=== PATIENT | female | born 1985 | race Two or more races ===

== ENCOUNTER 2025-02-19 04:22 | Emergency (ER) | payer MEDICAID, SELFPAY ==
[2025-02-19 04:22] VITALS: BMI 47.2
[2025-02-19 04:23] VITALS: BP 158/109; PULSE 104; RESP 19; TEMP 36.9; O2SAT 97
--- NOTE | 2025-02-19 06:35 | PC.NURSE ---
No answer when called from lobby by Ike ARNOLD
--- NOTE | 2025-02-19 07:00 | PC.NURSE ---
No answer when called from zach
--- NOTE | 2025-02-19 07:19 | PC.NURSE ---
no answer when called from zach
--- NOTE | 2025-02-19 07:19 | PC.NURSE ---
PT CALLED; NO ANSWER.
--- NOTE | 2025-02-19 07:19 | PC.NURSE ---
no answer when called from lobby and patient no where in the ER
--- NOTE | 2025-02-19 07:25 | PC.NURSE ---
PT CALLED 2ND TIME, NO ANSWER.
--- NOTE | 2025-02-19 07:33 | PC.NURSE ---
PT CALLED 3RD TIME; NO ANSWER. ALEXANDER.
== END 2025-02-19 07:20 | disposition left against medical advice (07) ==
LOC: SERX 07:25
PROVIDERS: Emergency Provider Emergency Medicine
DX: Z53.29 Procedure and treatment not carried out because of patient's decision for other reasons (principal)
CPT/HCPCS: 99282

== ENCOUNTER 2025-03-15 10:11 | Emergency (ER) | payer MEDICAID, SELFPAY ==
[2025-03-15 10:12] VITALS: BMI 47.2
[2025-03-15 10:24] VITALS: BP 148/87; PULSE 88; RESP 18; TEMP 36.9; O2SAT 97
--- NOTE | 2025-03-15 10:31 | XR_ITS ---
Examination: PA lateral chest 2 views TECHNIQUE: Upright PA lateral chest 2 views Date and time: March 15, 2025, 1031 hours INDICATIONS: Coughing 3 months. FINDINGS: Normal heart size The lungs are clear. The osseous structures are intact IMPRESSION: No active disease
--- NOTE | 2025-03-15 10:31 | PD.EDABDPN ---
ED Abdominal Pain RME/HPI General Chief Complaint: Abdominal Pain Stated complaint: COUGH FOR MONTHS CAUSEING RIGHT ABD PAIN Time seen by provider: 03/15/25 10:24 Arrival date/time: 03/15/25 10:11 40-year-old female with no known medical history presents to the emergency room with a chief complaint of right lower quadrant abdominal pain and tenderness, nausea, vomiting, cough and congestion. Patient was sent over by her primary care provider to rule out appendicitis. Source: patient Mode of arrival: ambulatory Limitations: no limitations Related Data Home Medications ?Medication ?Instructions ?Recorded ?Confirmed albuterol sulfate 90 mcg/actuation 2 puff inhalation QID PRN Wheezing 07/21/21 07/22/21 aerosol inhaler (ProAir HFA) fluticasone propionate 250 1 inh inhalation Q12H 07/21/21 07/22/21 mcg/actuation blister powder for inhalation metoprolol tartrate 50 mg tablet 50 mg PO BID 07/21/21 07/22/21 montelukast 10 mg tablet 10 mg PO DAILY 07/21/21 07/22/21 omeprazole 20 mg capsule,delayed 20 mg PO QDAY 07/21/21 07/22/21 release pseudoephedrine HCl 60 mg tablet 60 mg PO DAILY 07/21/21 07/22/21 (Sudogest) Allergies Allergy/AdvReac Type Severity Reaction Status Date / Time No Known Allergies Allergy Verified 03/15/25 10:14 Review of Systems Review of Systems Systems Reviewed: All systems reviewed, normal except as documented Constitutional Constitutional: Reports system reviewed and no additional complaints, except as documented, Denies fatigue, Denies fever(s), Denies headache(s) and Denies weakness Eyes Eyes: Reports system reviewed and no additional complaints, except as documented, Denies blurry vision and Denies change in vision ENT Ears, Nose, Mouth, and Throat: Reports system reviewed and no additional complaints, except as documented, Denies otalgia, Denies headache(s), Denies nasal congestion, Denies throat swelling and Denies vertigo Cardiovascular Cardiovascular: Reports system reviewed and no additional complaints, except as documented, Denies chest pain, Denies dyspnea and Denies dyspnea on exertion Respiratory Respiratory: Reports system reviewed and no additional complaints, except as documented, Denies chest congestion, Denies cough, Denies dyspnea, Denies dyspnea on exertion and Denies wheezing Gastrointestinal Gastrointestinal: Reports system reviewed and no additional complaints, except as documented, Reports abdominal pain, Denies cramping, Reports nausea and Reports vomiting Genitourinary Genitourinary: Reports system reviewed and no additional complaints, except as documented Musculoskeletal Musculoskeletal: Reports system reviewed and no additional complaints, except as documented and Denies back pain Integumentary/Breasts Skin/Breast: Reports system reviewed and no additional complaints, except as documented and Denies wounds Neurologic Neurologic: Reports system reviewed and no additional complaints, except as documented, Denies confusion, Denies headache(s), Denies lack of coordination, Denies vertigo and Denies weakness Psychiatric Psychiatric: Reports system reviewed and no additional complaints, except as documented, Denies anxiety, Denies confusion, Denies depression, Denies paranoia, Denies suicidal ideation and Denies tactile hallucinations Endocrine Endocrine: Reports system reviewed and no additional complaints, except as documented and Denies fatigue Hematologic/Lymphatic Hematologic/Lymphatic: Reports system reviewed and no additional complaints, except as documented and Denies lymphadenopathy Allergic/Immunologic Allergic/Immunologic: Reports system reviewed and no additional complaints, except as documented, Denies throat swelling, Denies urticaria and Denies wheezing Past Medical History Past Medical History NEUROLOGIC: Positive Neurological Disorders, Migraine and Head Trauma (2004 [facility] ER VISIT); Negative Seizures CARDIAC: Positive Cardiac Disorders and Hypertension (TAKES MED); Negative Congestive Heart Failure, Edema or Cellulitis RESPIRATORY: Positive Asthma (HOSP), Tuberculosis (WAS TREATED 1998) and Sleep Apnea (BEING DIAGNOSE NO MACHINE); Negative Chronic Obstructive Pulmonary Disease (COPD) (HAS ASTHMA HAS INHALERS) GASTROINTESTINAL: Positive Gastrointestinal Disorders, Gastroesophageal Reflux Disease (TAKES MED) and Obesity; Negative Hepatitis GENITOURINARY: Positive Genitourinary Disorders and Kidney Stones (NO SURG); Negative Renal Disease REPRODUCTIVE: Positive Previous Pregnancies (2004 Miscarriage X1) MUSCULOSKELETAL: Positive Musculoskeletal Disorders (Left Knee arthroscopy 2003 and 2008), Arthritis and Fractures (LEFT ARM HAD CAST) ENT: Positive Head Trauma (2004 FE[facility] OF [facility] VISIT) ENDOCRINE: Positive Endocrine Disorders (PRE DIABETES); Negative Diabetes Mellitus Type 1 or Diabetes Mellitus Type 2 HEMATOLOGIC: Negative Blood Disorders or Sickle Cell Disease OTHER HISTORY: Positive Chicken Pox; Negative Hospitalization, Autoimmune Disease, Shingles, Falls, Blood Transfusions, Blood Transfusion Reaction, Anesthesia Reactions, Chemotherapy, Radiation Therapy, MRSA, Measles, Mumps or Cancer Family History FAMILY HISTORY: Positive Family Psychiatric Problems (FATHER (DEPRESSION)), Family Respiratory Disorders (GRANDMOTHER, COPD) and Family Surgery (MOTHER,FATHER); Negative Family Cardiac Disorders, Family Gastrointestinal Problems, Family Cancer or Family Anesthesia Reaction Surgical History SURGICAL: Positive Tonsillectomy (As a youth) and Arthroscopy (LEFT KNEE); Negative Cardiac Surgery or Pacemaker Social History SMOKING STATUS: Never smoker ED Exam General Limitations: Present no limitations General appearance: Present alert and in no apparent distress Head Head exam: Present atraumatic Eye Eye exam: Present normal appearance, PERRL and EOMI ENT ENT exam: Present normal exam, normal oropharynx and mucous membranes moist Neck Neck exam: Present normal inspection, full ROM and trachea midline Chest Chest inspection: Present normal inspection and symmetric chest wall rise Respiratory Respiratory exam: Present normal lung sounds bilaterally Cardiovascular Cardiovascular exam: Present regular rate, normal rhythm and normal heart sounds Abdominal Exam Abdominal exam: Present soft, tenderness and normal bowel sounds; Absent tenderness at McBurney's Point Abdominal tenderness: Present RLQ and mild Extremities Exam Extremities exam: Present normal inspection and full ROM Back Exam Back exam: Present normal inspection and full ROM Neurological Exam Neurological exam: Present alert, oriented X3 and CN II-XII intact Psychiatric Psychiatric exam: Present normal affect and normal mood Skin Skin exam: Present warm, dry, intact and normal color Course Quality Measures none Orders Category Date Time Status Bedside COVID-19 Antigen Test NOW Care 03/15/25 10:31 Completed Bedside Influenza A&B Antigen Test NOW Care 03/15/25 10:[address] Screening NOW Care 03/15/25 10:[address] abdomen pelvis w con Stat Exams 03/15/25 10:32 Completed XR chest 2V Stat Exams 03/15/25 10:31 Completed CBC Stat Lab 03/15/25 10:50 Completed CMP [Comprehensive Metabolic Panel] Stat Lab 03/15/25 10:50 Completed HCG Qualitative,Urine Stat Lab 03/15/25 11:15 Completed Lipase Stat Lab 03/15/25 10:50 Completed UA [Urinalysis] Stat Lab 03/15/25 11:15 Completed Urine Culture Stat Lab 03/15/25 11:15 Received Ondansetron Inj [Zofran Inj] Med 03/15/25 13:09 Discontinued 4 mg IVP X1 ONE Ondansetron Odt [Zofran Odt] Med 03/15/25 10:30 Discontinued 4 mg PO X1 ONE Vital Signs Vital signs: Vital Signs Temperature 98.5 F 03/15/25 10:24 Pulse Rate 88 03/15/25 10:24 Respiratory Rate 18 03/15/25 10:24 Blood Pressure 148/87 H 03/15/25 10:24 Pulse Oximetry (%) 97 03/15/25 10:24 Oxygen Delivery Method Room Air 03/15/25 10:24 Abdominal Pain MDM MDM Narrative MDM Narrative:: 40-year-old female with no known medical history presents to the emergency room with a chief complaint of right lower quadrant abdominal pain and tenderness, nausea, vomiting, cough and congestion. Patient was sent over by her primary care provider to rule out appendicitis. Patient is hemodynamically stable and in no apparent distress Physical examination shows tenderness and pain to the patient's right lower quadrant with palpation. there is no rebound tenderness. CT of the abdomen and pelvis was completed and was negative for any acute appendicitis bowel obstruction or diverticulitis CBC CMP urinalysis were all within normal limits Patient was discharged and educated to follow-up with primary care provider in the next 24 to 48 hours and return to the emergency room for any evidence of worsening signs or symptoms Patient data External records reviewed:: [facility] previous records Clinical information provided by:: patient Social determinants that could affect healthcare access:: none Patient has the following chronic illnesses:: No chronic illness How is presenting disease/condition affected by chronic disease/condition?: no chronic disease Evaluation data The following diagnostics were reviewed and interpreted by me:: lab results and radiology exam(s) Lab and/or radiology exams considered but not ordered:: Labs and radiology exams considered in order Interpretation Summary: CT abdomen and pelvis-Findings: Diffuse fatty infiltration throughout the liver No gallstones. No pancreatic or splenic mass Normal adrenal glands. No renal or ureteral calculi, no hydronephrosis Aorta normal size 15 mm fat-containing umbilical hernia Normal appendix No pericecal inflammatory change Colonic diverticulosis, no diverticulitis Contracted urinary bladder Absent uterus Intact osseous structures IMPRESSION: No renal or ureteral calculi, no hydronephrosis No CT findings of appendicitis bowel obstruction or diverticulitis Medications / Prescriptions Medications or Prescriptions considered but not ordered:: N/A Medication administrations:: Medication Administration History Discontinued Medications Ondansetron HCl (Ondansetron Odt 4 Mg Tabrap) 4 mg PO X1 ONE; Protocol Stop: 03/15/25 10:31 Last Admin: 03/15/25 10:39 Dose: 4 mg Documented By: Ondansetron HCl (Ondansetron Inj 2 Mg/Ml Inj 2 Ml) 4 mg IVP X1 ONE; Protocol Stop: 03/15/25 13:10 Last Admin: 03/15/25 14:15 Dose: 4 mg Documented By: GE Medication given Consultations Consultation(s) initiated? (list below): No Diagnosis Differential diagnosis abdominal pain: abdominal pain, acute appendicitis, constipation and gastroenteritis Most likely diagnosis given after review of the tests above:: Abdominal pain Admission Indicated Admission indicated?: not indicated Admission Request Was there a request for admission?: No Disposition Plan Disposition Plan: Discharge Discharge Attestation Discharge Attestation: The patient and all family members were given an opportunity to ask questions and understood the discharge instructions. Discharge instructions specifically effects, indications for sooner follow up or return to the emergency department, and the expected course of current diagnosis. Patient condition: Stable Discharge Plan Plan Patient Disposition: HOME (Self Care) Discharge Disposition comment: Stable Prescriptions/Referrals Prescriptions/Med Rec: No Action metoprolol tartrate 50 mg Tablet 50 mg PO BID omeprazole 20 mg Capsule,Delayed Release(Dr/Ec) 20 mg PO QDAY montelukast 10 mg Tablet 10 mg PO DAILY albuterol sulfate [ProAir HFA] 90 mcg/actuation Hfa Aerosol Inhaler 2 puff INHALATION QID PRN (Reason: Wheezing) fluticasone propionate 250 mcg/actuation Blister With Device 1 inh INHALATION Q12H pseudoephedrine HCl [Sudogest] 60 mg Tablet 60 mg PO DAILY Referrals: Bob Christopher PA-C [Primary Care Provider] - In 1 week Problem List Clinical Impression: Pelvic pain Patient/Caregiver Discharge Instructions Education Materials: ED Pain, Acute, Uncertain Cause Additional Instructions: Please follow-up with your primary care provider in the next [address] of the abdomen and pelvis was negative for any acute appendicitis or any other abnormal findings For any evidence of worsening signs or symptoms please return to the emergency room immediately Print Language: Omani Stand Alone Forms: [employer] Award Info., Work/School Release, Patient Portal Info Letter
--- NOTE | 2025-03-15 10:32 | XR_ITS ---
Examination: CT abdomen with intravenous contrast CT pelvis with intravenous contrast 2-D coronal reconstructions 2-D sagittal reconstructions Date and time of exam:March 15, 2025, 1343 hours, comparison December 06, 2019 INDICATIONS: Onset right lower abdominal pain today. CTDI: vol (mGy) 15.7 DLP: (mGycm) 954 Technique: Multiple axial sections of the abdomen and pelvis have been obtained. 64 slice high-resolution scanner used. 3 mm axial sections have been obtained, post intravenous injection 60 cc [id number] 2-D sagittal, coronal reconstructions obtained. Low dose protocols were performed. One or more of the following dose reduction techniques were used; automated exposure control, adjustment of the mA and/or KV according to patient size, use of iterative reconstruction technique. Findings: Diffuse fatty infiltration throughout the liver No gallstones. No pancreatic or splenic mass Normal adrenal glands. No renal or ureteral calculi, no hydronephrosis Aorta normal size 15 mm fat-containing umbilical hernia Normal appendix No pericecal inflammatory change Colonic diverticulosis, no diverticulitis Contracted urinary bladder Absent uterus Intact osseous structures IMPRESSION: No renal or ureteral calculi, no hydronephrosis No CT findings of appendicitis bowel obstruction or diverticulitis
[2025-03-15] MEDS: ONDANSETRON ODT 4 MG TABRAP PO (10:39)
[2025-03-15 11:19] LABS: Collection Type, Urine Clean Catch
[2025-03-15 11:20] LABS: Basophils # (Auto) 0.1 Thou/mm3 (0.0-0.2); Basophils % (Auto) 1 % (0-2.5); Eosinophils # (Auto) 0.1 Thou/mm3 (0.0-0.5); Eosinophils % (Auto) 1 % (0-10); Hematocrit 42.0 % (36.0-46.0); Hemoglobin 14.5 g/dL (12.0-16.0); Immature Granulocytes Auto 0.03 Thou/mm3 (0.00-0.00); Lymphocytes # (Auto) 2.9 Thou/mm3 (1.0-4.8); Lymphocytes % (Auto) 24 % (10-50); Mean Corpuscular HGB Conc 34.5 g/dl (31.0-37.0); Mean Corpuscular Hemoglobin 31.4 pg (25.0-35.0); Mean Corpuscular Volume 91 fL (80-100); Monocytes # (Auto) 1.1 Thou/mm3 (0.0-0.8); Monocytes % (Auto) 9 % (0-12); Neutrophils # (Auto) 8.0 Thou/mm3 (1.8-7.7); Neutrophils % (Auto) 66 % (37-80); Nucleated Red Blood Cell # 0.00 Thou/mm3 (0.00-0.00); Nucleated Red Blood Cell % 0 /100 WBC (0); Platelet Count 339 Thou/mm3 (140-440); RDW Standard Deviation 45.7 fL (36.4-46.3); Red Blood Count 4.62 Miln/mm3 (4.00-5.20); White Blood Count 12.2 Thou/mm3 (3.6-11.0)
[2025-03-15 11:39] LABS: HCG Qualitative,Urine Negative
[2025-03-15 11:41] LABS: Alanine Aminotransferase 67 U/L (10-49); Albumin, Serum 4.2 gm/dL (3.5-5.0); Albumin/Globulin Ratio 1.4 (1.2-2.2); Alkaline Phosphatase 140 U/L (46-116); Anion Gap 8 (7-16); Aspartate Amino Transferase 48 U/L (0-34); BUN/Creatinine Ratio 10 Ratio (12-20); Bilirubin,Total 0.7 mg/dL (0.3-1.2); Blood Urea Nitrogen < 5 mg/dL (9-23); Calcium 9.7 mg/dL (8.3-10.6); Calcium (Corrected) 9.7 mg/dL (8.5-10.1); Carbon Dioxide 24.8 mMol/L (20.0-31.0); Chloride 109 mMol/L (98-107); Creatinine (Component) 0.5 mg/dL (0.6-1.3); Estimated Creatinine Clearance 173.1 mL/min (>60); Globulin 2.9 gm/dL (2.3-3.5); Glucose 78 mg/dL (74-106); Lipase 28 U/L (12-53); Osmolality,Calculated 279 (275-295); Potassium 3.4 mMol/L (3.4-5.1); Sodium 142 mMol/L (136-145); Total Protein 7.1 gm/dL (5.7-8.2); eGFR > 60 See Note
[2025-03-15 12:02] LABS: Bilirubin,Urine Negative (Negative); Blood,Urine 1+ (Negative); Clarity,Urine Clear (Clear/Hazy); Color,Urine Yellow (Lt Yel-Yel); Glucose, Urine Trace (Negative); Ketones,Urine Negative (Negative); Leukocyte Esterase,Urine Negative (Negative); Nitrite,Urine Negative (Negative); PH,Urine 6.0 (5.0-7.0); Protein,Urine Trace (Neg - Trace); RBC,Urine 10 /hpf (0-3); Specific Gravity,Urine 1.031 (1.001-1.035); Squamous Epithelial Cell,Urine 3 /hpf (0-5); Urobilinogen,Urine 3.0 mg/dL (0.0-1.0); WBC,Urine 2 /hpf (0-5)
[2025-03-15] MEDS: ONDANSETRON INJ 2 MG/ML INJ 2 ML 4 MG IVP (14:15)
== END 2025-03-15 15:36 | disposition home or self-care (01) ==
PROVIDERS: Nurse Practitioner Family; Emergency Provider Family Medicine; PCP Physician Assistant
DX: R10.2 Pelvic and perineal pain (principal); R10.31 Right lower quadrant pain; R05.9 Cough, unspecified
CPT/HCPCS: 36415; 71046; 74177; 80053; 81001; 81025; 83690; 85025; 87077; 87086; 87186; 87400; 87811; 96374; 99283; A4649; J2405; Q0162; Q9967

== ENCOUNTER → 2025-04-12 | Outpatient (CLI) | payer MEDICAID, SELFPAY ==
--- NOTE | 2025-04-12 10:00 | XR_ITS ---
Examination: Breast ultrasound complete, bilateral Date and time of exam: April 12 thousand 25, 1020 hours INDICATIONS: Bilateral breast pain beginning one year ago Technique: Real-time grayscale ultrasonographic imaging bilateral breasts, including all 4 quadrants as well as nipple retroareolar and axillary regions. Findings: Sonographic images right breast Multiple benign cysts, the largest in the 10:00 position 7 x 5 mm No solid nodules Sonographic images left breast Multiple benign cysts 5:00 circumscribed nodule 5 x 4 mm IMPRESSION: BI-RADS Category 3: Probably benign findings One additional 6 month left breast sonogram follow-up is needed to document stability of 5:00 solid nodule described above
--- NOTE | 2025-04-12 11:00 | XR_ITS ---
Examination: Diagnostic digital mammography, bilateral Computer aided detection 3-D breast Tomosynthesis, bilateral Date and time of exam: April 12, 2025, 1045 hours, no priors INDICATIONS: Patient states bilateral breast pain one year Technique: Nonmagnified MLO, CC views of the breasts to been obtained, reconstructed from 3-D Tomosynthesis images. R2 computer aided detection program utilized for evaluation of suspicious masses and/or abnormal calcifications. 3-D Tomosynthesis images obtained. Findings: Scattered areas of bilateral granular density. 12 mm nodule lobular margins 12:00 position right breast Impression: BI-RADS Category 0: Incomplete: Need additional imaging evaluation Recommend follow-up spot tomographic views of the 12 mm nodule 12:00 position right breast.
== END | disposition home or self-care (01) ==
PROVIDERS: PCP Student in an Organized Health Care Education/Training Program; Referring Provider Student in an Organized Health Care Education/Training Program; Visit Provider Student in an Organized Health Care Education/Training Program
DX: R92.8 Other abnormal and inconclusive findings on diagnostic imaging of breast (principal); N63.15 Unspecified lump in the right breast, overlapping quadrants; N63.23 Unspecified lump in the left breast, lower outer quadrant
CPT/HCPCS: 76641; 77062; 77066; G0279

== ENCOUNTER → 2025-05-23 | Outpatient (CLI) | payer MEDICAID, SELFPAY ==
--- NOTE | 2025-05-23 14:30 | XR_ITS ---
Examination: Diagnostic digital mammography, unilateral, right Computer aided detection 3-D breast Tomosynthesis, unilateral Date and time of exam: 05/23/2025, 2:39 p.m. Comparisons: 03/23/2025 Indications: Further evaluation of abnormality seen on screening exam Technique: Nonmagnified MLO, CC views of the right breast have been obtained, reconstructed from 3-D Tomosynthesis images. R2 computer aided detection program utilized for evaluation of suspicious masses and/or abnormal calcifications. 3-D Tomosynthesis images obtained. Technologist: Findings: There are scattered areas of fibroglandular density. 5 mm focal asymmetry lower, slightly medial breast persists on spot compression views. Otherwise, no evidence of abnormal masses or suspicious calcifications. Impression: 5 mm focal asymmetry lower inner quadrant as above. Repeat evaluation with ultrasound is recommended with focus in the lower inner quadrant. BI-RADS category 0: Incomplete assessment; need additional imaging evaluation
== END | disposition home or self-care (01) ==
LOC: CDIM 14:24
PROVIDERS: Referring Provider Nurse Practitioner Women's Health; Visit Provider Nurse Practitioner Women's Health
DX: N64.89 Other specified disorders of breast (principal); R92.8 Other abnormal and inconclusive findings on diagnostic imaging of breast
CPT/HCPCS: 77061; 77065; G0279

== ENCOUNTER → 2025-06-20 | Outpatient (CLI) | payer MEDICAID, SELFPAY ==
--- NOTE | 2025-06-20 14:30 | XR_ITS ---
Examination: Breast ultrasound, unilateral, right Date and time of exam: June 20, 2025, 1600 hours INDICATIONS: Mammogram May 23 2025 mm focal asymmetry medial breast on the spot compression views Technique: Real-time blackwood scale ultrasonographic imaging performed right breast including all 4 quadrants as well as nipple retroareolar and axillary region. Findings: 1:00 circumscribed nodule 3 x 3 mm 2. O'clock circumscribed nodule 6 x 7 mm 9:00 circumscribed nodule 10 x 5 mm 10:00 circumscribed nodule 4 x 4 mm 10:00 circumscribed nodule 6 x 7 mm IMPRESSION: BI-RADS Category 2: Benign findings 1 additional 6-month right breast sonogram follow-up is needed to document stability of nodules described above
== END | disposition home or self-care (01) ==
LOC: CDIM 14:37
PROVIDERS: PCP Physician Assistant; Referring Provider Physician Assistant; Visit Provider Physician Assistant
DX: N63.15 Unspecified lump in the right breast, overlapping quadrants (principal); N63.12 Unspecified lump in the right breast, upper inner quadrant; N63.11 Unspecified lump in the right breast, upper outer quadrant
CPT/HCPCS: 76641